=== PATIENT | female | born 1960 | race Caucasian/White ===

== ENCOUNTER 2017-03-05 11:21 | Emergency (ER) | payer BC ==
[2017-03-05 11:36] VITALS: BP 204/127
[2017-03-05] MEDS ORDERED: HYDROmorphone 0.5 MG/0.5 ML Syringe IVPUSH ONE ×2 (12:06→13:18)
[2017-03-05] MEDS ORDERED: Diazepam 5 MG Tab PO ONE (12:07)
--- NOTE | 2017-03-05 12:08 | EDM.PDOC ---
ED HPI GENERAL MEDICAL PROBLEM - General Chief Complaint: Neck Problem Stated Complaint: NECK PAIN Time Seen by Provider: 03/05/17 12:01 Source of Information: Reports: Patient, Family (spouse) History Limitations: Reports: No Limitations - History of Present Illness INITIAL COMMENTS - FREE TEXT/NARRATIVE: Woke up with neck pain and stiffness after painting for 8 hours yesterday. No history of neck and back problems. Rates pain a 10 when spasm occurs. Left arm feels "tight". Onset: Today Onset Date: 03/05/17 Duration: Intermittent Location: Reports: Neck Quality: Reports: Stabbing Severity: Severe Improves with: Reports: Medication (2 excedrin) Context: Reports: Activity Associated Symptoms: Reports: No Other Symptoms - Related Data Allergies Allergy/AdvReac Type Severity Reaction Status Date / Time No Known Allergies Allergy Verified 03/05/17 11:44 Home Meds: Home Meds NK [No Known Home Meds] 03/05/17 [History] Past Medical History Cardiovascular History: Reports: Hypertension - Past Surgical History GI Surgical History: Reports: Hernia Repair/Other Female Surgical History: Reports: Section, Hysterectomy Musculoskeletal Surgical History: Reports: Ganglion Cyst Social & Family History - Tobacco Use Smoking Status *Q: Never Smoker ED ROS GENERAL - Review of Systems Review Of Systems: See Below Constitutional: Reports: No Symptoms HEENT: Reports: No Symptoms Respiratory: Reports: No Symptoms Cardiovascular: Reports: No Symptoms Musculoskeletal: Reports: Neck Pain (left side, tight with spasm) Skin: Reports: No Symptoms ED EXAM, UPPER BACK/NECK PAIN - Physical Exam Exam: See Below Exam Limited By: No Limitations General Appearance: Alert, WD/WN, No Apparent Distress, Moderate Distress Neck Exam: Limited Range of Motion, Muscle Spasm (on the left), Painful Range of Motion, Stiff Neck, Tenderness Cardiovascular/Respiratory: Regular Rate, Rhythm, No M/R/G, Normal Peripheral Pulses, No JVD, Normal Breath Sounds, No Respiratory Distress Course - Vital Signs Last Recorded V/S: Last Vital Signs Temp 99 F 03/05/17 11:50 Pulse 82 03/05/17 11:50 Resp 16 03/05/17 11:50 BP 204/127 H 03/05/17 11:50 Pulse Ox 94 L 03/05/17 11:50 - Orders/Labs/Meds Meds: Medications Discontinued Medications Generic Name Dose Route Start Last Admin Trade Name Freq PRN Reason Stop Dose Admin Diazepam 5 mg 03/05/17 12:07 03/05/17 12:15 Valium. PO 03/05/17 12:08 5 mg ONETIME ONE Administration Hydromorphone HCl 0.5 mg 03/05/17 12:06 03/05/17 12:15 Dilaudid IVPUSH 03/05/17 12:07 0.5 mg ONETIME ONE Administration Hydromorphone HCl 1 mg 03/05/17 12:25 03/05/17 12:45 Dilaudid IVPUSH 03/05/17 12:26 1 mg ONETIME ONE Administration Hydromorphone HCl 0.5 mg 03/05/17 13:18 03/05/17 13:28 Dilaudid IVPUSH 03/05/17 13:19 0.5 mg ONETIME ONE Administration Ondansetron HCl 4 mg 03/05/17 13:18 03/05/17 13:28 Zofran IVPUSH 03/05/17 13:19 4 mg ONETIME ONE Administration Departure - Departure Time of Disposition: 13:31 Disposition: Home, Self-Care 01 Condition: good Clinical Impression: Neck pain, musculoskeletal - Discharge Information Referrals: PCP,None [Primary Care Provider] - Forms: ED Department Discharge Additional Instructions: ED course-pain treated with Dilaudid IV and Valium for muscle spasm. Ice applied to neck area. Pt given Zofran for nausea secondary to Dilaudid. To be sent home with Flexeril 10mg TID prn pain and Relafen 500mg po BID for antiinflammatories. Encouraged ice, massage to area. May need Physical Therapy next week if pain persists. Followup as needed. - Problem List & Annotations (1) Neck pain, acute SNOMED Code(s): 08918813, [id number] Code(s): M54.2 - CERVICALGIA Status: Acute Priority: Medium Current Visit: Yes
[2017-03-05] MEDS ORDERED: HYDROmorphone 1 MG/ML Syringe IVPUSH ONE (12:25)
[2017-03-05] MEDS ORDERED: Ondansetron 4 MG/2 ML SDV IVPUSH ONE (13:18)
== END 2017-03-05 14:33 | disposition home or self-care (01) ==
LOC: JP.ED 11:21
DX: M54.2 Cervicalgia (principal); I10 Essential (primary) hypertension; Z90.710 Acquired absence of both cervix and uterus; Z98.890 Other specified postprocedural states
CPT/HCPCS: 96374; 96375; 96376; 99283; A9270; J1170; J2405